=== PATIENT | male | born 1940 | race Caucasian/White ===

== ENCOUNTER 2018-10-28 09:18 | Emergency (ER) | payer MEDICARE, OTHER ==
[2018-10-28] MEDS ORDERED: Tamsulosin 0.4 MG Cap.ER PO ONE (10:34)
--- NOTE | 2018-10-28 10:43 | EDM.PDOC ---
ED HPI GENERAL MEDICAL PROBLEM - General Chief Complaint: Genitourinary Problem Stated Complaint: TROUBLE URINATING Time Seen by Provider: 10/28/18 09:52 Source of Information: Reports: Patient, Family (), RN Notes Reviewed History Limitations: Reports: No Limitations - History of Present Illness INITIAL COMMENTS - FREE TEXT/NARRATIVE: The patient states that he has had difficulty initiating a urinary stream for about 4 days, and that he has had a small urine output with urinary urgency for about 3 days. He denies having dysuria, back or flank pain, fever, or nausea or vomiting. No prior similar symptoms. The patient denies having any recent medication changes. He denies using antihistamines recently. The patient's PCP is Dr. Vargas Barnes. The patient's [facility] [facility] is in [place], [place]. - Related Data Allergies Allergy/AdvReac Type Severity Reaction Status Date / Time No Known Allergies Allergy Verified 10/28/18 09:39 Home Meds: Home Meds Aspirin [Ecotrin] 81 mg PO DAILY 10/28/18 [History] Past Medical History HEENT History: Reports: Impaired Vision Cardiovascular History: Reports: High Cholesterol, Hypertension, PVD Respiratory History: Reports: COPD (on 3L O2 continuously) - Past Surgical History HEENT Surgical History: Reports: Cataract Surgery (bilateral), Oral Surgery ( wisdom teeth extraction), Other (See Below) (Left femoral artery stent) Cardiovascular Surgical History: Reports: Carotid Endarterectomy (left) GI Surgical History: Reports: Colonoscopy Social & Family History - Tobacco Use Smoking Status *Q: Former Smoker Years of Tobacco use: 56 Packs/Tins Daily: 0.5 Month/Year Tobacco Last Used: Quit 2011 - Caffeine Use Caffeine Use: Reports: Coffee - Alcohol Use Alcohol Use History: Yes Alcohol Use Frequency: Socially - Recreational Drug Use Recreational Drug Use: No - Living Situation & Occupation Living situation: Reports: , with Spouse Occupation: Retired ED ROS GENERAL - Review of Systems Review Of Systems: ROS reveals no pertinent complaints other than HPI. ED EXAM, RENAL/ - Physical Exam Exam: See Below Exam Limited By: No Limitations General Appearance: Alert, WD/WN, No Apparent Distress Eye Exam: Bilateral Eye: EOMI, Normal Inspection Ears: Normal External Exam, Hearing Grossly Normal Nose: Normal Inspection Throat/Mouth: Normal Inspection, Normal Lips, Normal Voice, No Airway Compromise Head: Atraumatic, Normocephalic Neck: Normal Inspection, Full Range of Motion Respiratory/Chest: No Respiratory Distress, No Accessory Muscle Use, Decreased Breath Sounds (all lung martinez), Wheezing (faint, end-expiratory). No: Crackles , Rhonchi, Prolonged Expiration Cardiovascular: Normal Peripheral Pulses, Regular Rate, Rhythm, No Edema, No Gallop, No JVD, No Murmur, No Rub GI/Abdominal: Normal Bowel Sounds, Soft, No Organomegaly, No Distention, No Abnormal Bruit, No Mass, Tender (Suprapubic region only. Nontender elsewhere.) (Male) Exam: Deferred Rectal (Males) Exam: Deferred Back Exam: Normal Inspection, Full Range of Motion. No: CVA Tenderness (L), CVA Tenderness (R) Extremities: Normal Inspection, Normal Range of Motion, No Pedal Edema, Normal Capillary Refill Neurological: Alert, Oriented, Normal Cognition, No Motor/Sensory Deficits Psychiatric: Normal Affect Skin Exam: Warm, Dry, Intact, Normal Color, No Rash Course - Vital Signs Last Recorded V/S: Last Vital Signs Temp 36.3 C 10/28/18 09:41 Pulse 85 10/28/18 09:41 Resp 25 H 10/28/18 09:41 BP 155/96 H 10/28/18 09:41 Pulse Ox 96 10/28/18 09:41 - Orders/Labs/Meds Orders: Active Orders 24 hr Category Date Time Status Bladder Scan [RC] ASDIRECTED Care 10/28/18 09:31 Active CBC WITH MANUAL DIFF [HEME] Stat Lab 10/28/18 10:59 Results COMPREHENSIVE METABOLIC PN,CMP [CHEM] Stat Lab 10/28/18 10:59 Received Labs: Laboratory Tests 10/28/18 10/28/18 Range/Units 10:07 10:59 WBC 6.42 (4.23-9.07) K/mm3 RBC 4.76 (4.63-6.08) M/mm3 Hgb 15.2 (13.7-17.5) gm/L Hct 48.9 (40.1-51.0) % MCV 102.7 H (79.0-92.2) fl MCH 31.9 (25.7-32.2) pg MCHC 31.1 L (32.2-35.5) g/dl RDW Std Deviation 49.3 H (35.1-43.9) fL Plt Count 307 (163-337) K/mm3 MPV 9.5 (9.4-12.3) fl Urine Color Yellow (Yellow) Urine Appearance Clear (Clear) Urine pH 6.0 (5.0-8.0) Ur Specific [place] 1.015 (1.005-1.030) Urine Protein Negative (Negative) Urine Glucose (UA) Negative (Negative) Urine Ketones Negative (Negative) Urine Occult Blood 1+ H (Negative) Urine Nitrite Negative (Negative) Urine Bilirubin Negative (Negative) Urine Urobilinogen 0.2 (0.2-1.0) Ur Leukocyte Esterase Negative (Negative) Urine RBC 0-5 (0-5) /hpf Urine WBC Not seen (0-5) /hpf Ur Epithelial Cells Not seen (0-5) /hpf Urine Bacteria Not seen (FEW) /hpf Hyaline Casts 0-5 (0-5) /lpf Urine Mucus Few (FEW) /hpf Meds: Medications Discontinued Medications Generic Name Dose Route Start Last Admin Trade Name Melba PRN Reason Stop Dose Admin Tamsulosin HCl 0.4 mg 10/28/18 10:34 10/28/18 10:41 Flomax PO 10/28/18 10:35 0.4 mg ONETIME ONE Administration - Re-Assessments/Exams Free Text/Narrative Re-Assessment/Exam: 10/28/18 10:37 The post-void bladder scan revealed only 114 and 120 mL of urinary retention. The patient does not need a Heath catheter. I have ordered a urinalysis to rule out a UTI. In the meantime, however, it is most likely that the patient's symptoms are related to BPH, therefore I will start him on tamsulosin. It is also possible, however, that the patient is suffering from prostate cancer. Tamsulosin is relatively contraindicated with prostate cancer, but only as it relates to delay of diagnosis. Because of that, I am going to insist that the patient follow-up with a Urologist for further evaluation - the patient prefers [facility]. 10/28/18 11:28 Notified that the patient eloped from the ED, telling his nurse that he hadn't had breakfast and that he was hungry. He was offered food, but refused. The patient's urinalysis is normal. His CBC and CMP are still pending. Departure - Departure Time of Disposition: 11:31 Disposition: Eloped 07 Condition: Good Clinical Impression: Difficulty urinating - Discharge Information *PRESCRIPTION DRUG MONITORING PROGRAM REVIEWED*: Not Applicable *COPY OF PRESCRIPTION DRUG MONITORING REPORT IN PATIENT BERNARD: Not Applicable Referrals: Vargas Barnes MD [Primary Care Provider] - - My Orders Last 24 Hours: My Active Orders 10/28/18 09:31 Bladder Scan [RC] ASDIRECTED 10/28/18 10:59 CBC WITH MANUAL DIFF [HEME] Stat COMPREHENSIVE METABOLIC PN,CMP [CHEM] Stat - Assessment/Plan Last 24 Hours: My Active Orders 10/28/18 09:31 Bladder Scan [RC] ASDIRECTED 10/28/18 10:59 CBC WITH MANUAL DIFF [HEME] Stat COMPREHENSIVE METABOLIC PN,CMP [CHEM] Stat
== END 2018-10-28 11:25 | disposition left against medical advice (07) ==
LOC: JD.ED 09:18
DX: R39.198 Other difficulties with micturition (principal); I10 Essential (primary) hypertension; Z79.82 Long term (current) use of aspirin; Z87.891 Personal history of nicotine dependence
CPT/HCPCS: 36415; 51798; 80053; 81001; 85007; 85027; 99283; A9270

== ENCOUNTER 2018-10-28 12:33 | Emergency (ER) | payer MEDICARE, OTHER | END 2018-10-28 12:44 | LOC: JD.ED 12:33 | DX: Z53.21 Procedure and treatment not carried out due to patient leaving prior to being seen by health care provider (principal) ==